=== PATIENT | female | born 1950 | race African-American/Black ===

== ENCOUNTER → 2024-01-30 | Outpatient (CLI) | payer OTHER, SELFPAY ==
[2024-01-29 12:08] LABS: Basophils % (Auto) 0 % (0-2.5); Eosinophils # (Auto) 0.1 Thou/mm3 (0.0-0.5); Eosinophils % (Auto) 3 % (0-10); Hematocrit 40.7 % (36.0-46.0); Hemoglobin 13.4 g/dL (12.0-16.0); Immature Granulocytes % (Auto) 0 % (0-0); Immature Granulocytes Auto 0.01 Thou/mm3 (0.00-0.00); Lymphocytes # (Auto) 1.9 Thou/mm3 (1.0-4.8); Lymphocytes % (Auto) 33 % (10-50); Mean Corpuscular HGB Conc 32.9 g/dl (31.0-37.0); Mean Corpuscular Hemoglobin 30.5 pg (25.0-35.0); Mean Corpuscular Volume 93 fL (80-100); Monocytes # (Auto) 0.4 Thou/mm3 (0.0-0.8); Monocytes % (Auto) 7 % (0-12); Neutrophils # (Auto) 3.2 Thou/mm3 (1.8-7.7); Neutrophils % (Auto) 57 % (37-80); Nucleated Red Blood Cell % 0 /100 WBC (0); Platelet Count 200 Thou/mm3 (140-440); White Blood Count 5.6 Thou/mm3 (3.6-11.0)
[2024-01-29 12:17] LABS: Partial Thromboplastin Time 28.6 Seconds (22.0-36.0); Prothrombin Time 11.2 Seconds (9.0-12.2)
--- NOTE | 2024-01-30 08:00 | XR_ITS ---
Examination: Thyroid sonography complete TECHNIQUE: Multiple high resolution grayscale sonographic images thyroid lobes with color flow analysis Exam date and time: January 30, 2024 0909 hours INDICATIONS: Difficulty swallowing several years, history thyroid biopsy outside biopsy performed one week ago FINDINGS: Right thyroid 7.2 x 4.2 x 4.0 cm Lower pole vascular nodule 5.6 x 4.1 x 5.3 cm Left thyroid 5.5 x 1.9 x 2.3 cm Multiple small left thyroid nodules, the largest upper pole 8 x 7 x 10 mm, midpole 8 x 5 x 7 mm IMPRESSION: Multiple bilateral thyroid nodules, the largest, vascular in the lower pole right thyroid 5.6 x 4.1 x 5.3 cm
== END | disposition home or self-care (01) ==
PROVIDERS: Radiology Diagnostic Radiology; PCP Internal Medicine; Referring Provider Internal Medicine Hematology & Oncology; Visit Provider Internal Medicine Hematology & Oncology
DX: E04.2 Nontoxic multinodular goiter (principal); Z53.8 Procedure and treatment not carried out for other reasons; Z01.812 Encounter for preprocedural laboratory examination
CPT/HCPCS: 36415; 76536; 85025; 85610; 85730

== ENCOUNTER → 2024-03-25 | Outpatient (CLI) | payer OTHER, SELFPAY ==
--- NOTE | 2024-03-25 12:40 | XR_ITS ---
Examination: Bone densitometry Date and time of exam:March 25, 2024 1338 hours INDICATIONS: Menopause age 40, diabetic Technique: Lumbar spine and hip total bone mineralization values of an calculated. Peak reference and age match control results have been displayed. Findings: Lumbar spine total bone mineralization is1.388 gm/cm2. This is 2.2 standard deviations above peak reference. This is 4.6 standard deviations above age-matched controls. Hip total bone mineralization is 1.086 gm/cm2 This is 0.4 standard deviations above peak reference. This is 1.6 standard deviations above age-matched controls Impression: There is normal mineralization based on lumbar spine measurements. There is normal mineralization based on hip measurements
== END | disposition home or self-care (01) ==
LOC: CDIM 12:42
PROVIDERS: Referring Provider Nurse Anesthetist, Certified Registered; Visit Provider Nurse Anesthetist, Certified Registered
DX: M81.0 Age-related osteoporosis without current pathological fracture (principal)
CPT/HCPCS: 77080

== ENCOUNTER 2024-06-12 09:06 | Outpatient (AMB) | payer OTHER, SELFPAY ==
[2024-06-12 09:26] VITALS: BP 146/80; PULSE 83; RESP 18; TEMP 36.8; O2SAT 91; BMI 40.9
--- NOTE | 2024-06-12 09:26 | ORTHONT_ITS ---
Vital signs 06/12/24 09:26 Height 1.63 m Height Method Stated Weight 108.21 kg Weight Measurement Method Standing Scale BMI 40.9 BP 146/80 H Blood Pressure Source Automatic Cuff Blood Pressure Location Right Upper Arm Position Sitting Respiration 18 Pulse 83 Pulse Source Monitor Temp 98.3 F Temp Source Temporal Artery Scan Pulse Oximetry (%) 91 L Oxygen Delivery Method Room Air Med/Allergies Allergies & Medications Allergies codeine Adverse Reaction (Intermediate, Verified 06/12/24 09:27) HIVES Medication Reconciliation acetaminophen 500 mg tablet (Tylenol Extra Strength) 500 mg PO Q6H PRN 06/12/24 [History Confirmed 06/12/24] allopurinol 100 mg tablet 100 mg PO QDAY 06/12/24 [History Confirmed 06/12/24] aspirin 81 mg tablet,delayed release 81 mg PO QDAY 06/12/24 [History Confirmed 06/12/24] atorvastatin 80 mg tablet 80 mg PO QDAY 06/12/24 [History Confirmed 06/12/24] azelastine 0.05 % eye drops 1 drp Both eyes BID 06/12/24 [History Confirmed 06/12/24] calcitriol 0.25 mcg capsule 0.25 mcg PO QDAY 06/12/24 [History Confirmed 06/12/24] cetirizine 10 mg capsule (Allergy Relief (cetirizine)) 10 mg PO QDAY PRN 06/12/24 [History Confirmed 06/12/24] chlorthalidone 25 mg tablet 25 mg PO QDAY 06/12/24 [History Confirmed 06/12/24] cholecalciferol (vitamin D3) 10 mcg (400 unit) tablet 10 mcg PO QDAY 06/12/24 [History Confirmed 06/12/24] diclofenac sodium 1 % topical gel 2 g topical QID 06/12/24 [History Confirmed 06/12/24] docusate sodium 100 mg capsule 100 mg PO QDAY 06/12/24 [History Confirmed 06/12/24] doxazosin 2 mg tablet 2 mg PO QDAY 06/12/24 [History Confirmed 06/12/24] exemestane 25 mg tablet 25 mg PO QDAY 06/12/24 [History Confirmed 06/12/24] glipizide 5 mg tablet 5 mg PO QDAY 06/12/24 [History Confirmed 06/12/24] guaifenesin 1,200 mg tablet, extended release 12 hr 1,200 mg PO BID 06/12/24 [History Confirmed 06/12/24] insulin aspart U-100 100 unit/mL (3 mL) subcutaneous pen (Novolog FlexPen U-100 Insulin aspart) 15 unit subcut TID 06/12/24 [History Confirmed 06/12/24] loratadine 10 mg tablet 10 mg PO QDAY 06/12/24 [History Confirmed 06/12/24] metoprolol succinate 200 mg capsule sprinkle, ext. release 24 hr 200 mg PO QDAY 06/12/24 [History Confirmed 06/12/24] mupirocin 2 % topical ointment 1 applic topical BID 06/12/24 [History Confirmed 06/12/24] nitroglycerin 0.4 mg sublingual tablet 0.4 mg sublingual Q5M PRN 06/12/24 [History Confirmed 06/12/24] ondansetron 8 mg disintegrating tablet 8 mg PO Q8H 06/12/24 [History Confirmed 06/12/24] semaglutide 3 mg tablet 3 mg PO QDAY 06/12/24 [History Confirmed 06/12/24] spironolactone 50 mg tablet 50 mg PO QAM 06/12/24 [History Confirmed 06/12/24] Exam Exam Patient is in no acute distress and is cooperative with the examination today. Breathing is nonlabored. In no respiratory distress. Bilateral extremities were evaluated and demonstrates sensation intact to light touch. Palpable pedal pulses are present. No significant edema is present. Bilateral hips were examined. The patient has no pain with log roll of the hips. Internal rotation to 30 degrees and external rotation to 30 degrees is painless. Negative FADIR. The left knee was examined. The left knee is in varus alignment. Range of motion from 0-115 degrees. Knee is stable to varus and valgus as well as AP translation with <5mm. Patient has a negative McMurrays. There is no pain with patellofemoral compression and no crepitus noted. The knee is tender to palpation medially. The right knee was also examined. The right knee is in varus alignment. Range of motion from 0-120 degrees. Knee is stable to varus and valgus as well as AP translation with <5mm. Patient has a negative McMurrays. There is no pain with patellofemoral compression and no crepitus noted. The knee is tender to palpation medially. I reviewed nonweightbearing x-rays of For medical imaging. This demonstrates medial osteophytes and joint space narrowing. Assessment and Plan Problem List (1) Arthritis of both knees: Status: Acute Plan: Bilateral knee arthritis patient is a 73-year-old female with bilateral knee pain and bilateral knee arthritis. We discussed different treatment options. She does have significant arthritis noted likely at weightbearing x-rays. I discussed with her that this is an elective procedure. She has not tried conservative treatment and we are not sure what her hemoglobin A1c is currently. We will see her back after her x-rays are done for further discussion of treatment options. Advanced Care Planning Discussion Advance care planning discussed with:: patient Office Procedures GNS Level of Care Nursing/Assessment Patient Status: Initial/New Patient Nursing Assessment/Reassesment: Medication Reconciliation, Update PMH in EMR and Vital Signs Coordination of Care: Complex Care and Chronic Disease 1-5, Education Complex Pt/Fam, Consent,records obtained, informed consent, Lab and Imaging orders, Results/Orders obtained and Staff clarify orders New Patient Charge New Patient Point Assignment: 1109 New Patient Point Charge: TELECOMMUNICATION ENGINEER Level 3 (0880-0810) MA Intake Visit Data Collection New Patient or Established: New Patient (never been to [facility]) Reason for Visit:: BILATERAL KNEE PAIN Seen by Clinical Staff ONLY (RN/MA): No Verbal consent obtained for Telemed visit?: No 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 PCP or OBGYN visit in last 3 months: Yes Hx Now: No Do You Feel Safe at Home: Yes Authorities Contacted: N/A Questionairres Past Medical History Past Medical History Have you ever been diagnosed with any of the following: Cardiology Problems Myocardial Infarction: Yes Hypertension: Yes Respiratory Problems Asthma: Yes Cough: No Wheezing: No Smoking: No Smoking Cessation Counseling: No Smoking Exposure: No Stomache/Intestinal Problems Obesity: Yes Genital/Urinary Problems Chronic Kidney Disease: Yes Reproductive Problems Breast Cancer: Yes Musculoskeletal Problems Arthritis: Yes Carpal Tunnel Syndrome: Yes Head,Eye,Nose,Throat Problems Glaucoma: Yes Endocrine Problems Diabetes Mellitus Type 2: Yes Subjective Visit Visit for: new patient and knee Immunization / Flu Flu Vaccine in the Last 12 Months: Yes Flu Vaccine Exclusion Criteria: Already Received History of Present Illness Chief complaint: Bilateral knee pain Date of injury / onset of symptoms: 5 YEARS Patient is a 73-year-old female with bilateral knee pain. This been ongoing for quite a while. She is actually lost 10 pounds recently on weight loss medications. She reports that this helped with the pain dramatically. She has had injections in the past which have raised her sugars dramatically. Her hemoglobin A1c is currently unknown.She is using a walker Personal History Occupation: RETIRED Red flag PMH: Blood thinners and BMI BMI Counceling provided: Yes Pain Pain level (0-10): 8 Pain duration: ALL DAY Pain location: anterior Pain quality: sharp, dull and aching Pain timing: increases with activity Associated signs & symptoms: stiffness Ambulatory data Ambulatory device: walker Treatments Number of previous injections: 6 Improvement with previous injections: Yes Number of Physical Therapy sessions: 6 Improvement with PT: No Improvement with NSAIDS: yes (TYLENOL) Review of Systems Review of Systems: All systems negative unless otherwise noted in HPI.
--- NOTE | 2024-06-12 09:31 | XR_ITS ---
Examination: Bilateral knees 2 views Right lateral knee left lateral knee 2 views Bilateral axial knees single view TECHNIQUE: Bilateral AP knees standing single view, bilateral PA knees standing single view flexion Standing right lateral knee left lateral knee 2 views Bilateral axial knees single view Exam date and time: June 12, 2024 0940 hours INDICATIONS: Bilateral knee pain beginning one year ago FINDINGS: Prominent osteopenia Moderate to advanced narrowing medial joint space right knee Advanced osteoarthritis right patellofemoral joint Severe narrowing medial joint space left knee, [id number] Advanced osteoarthritis left patellofemoral joint No fractures IMPRESSION: Moderate to advanced narrowing medial joint space right knee Advanced osteoarthritis right patellofemoral joint Severe narrowing medial joint space left knee, [id number] Advanced osteoarthritis left patellofemoral joint
== END 2024-06-12 09:42 | disposition home or self-care (01) ==
PROVIDERS: Supervising Provider Orthopaedic Surgery Adult Reconstructive Orthopaedic Surgery; Visit Provider Orthopaedic Surgery Adult Reconstructive Orthopaedic Surgery
DX: M17.0 Bilateral primary osteoarthritis of knee (principal); M25.562 Pain in left knee; M25.561 Pain in right knee; I10 Essential (primary) hypertension; I25.2 Old myocardial infarction; E11.9 Type 2 diabetes mellitus without complications
CPT/HCPCS: 73564; 99203; G0463

== ENCOUNTER 2024-07-04 10:30 | Outpatient (AMB) | payer OTHER, SELFPAY ==
[2024-07-04 10:46] VITALS: BP 118/74; PULSE 83; RESP 18; TEMP 36.3; O2SAT 96; BMI 40.1
--- NOTE | 2024-07-04 10:46 | PD.ORTHCLVIS ---
Vital signs 07/04/24 10:46 Height 1.63 m Height Method Stated Weight 106.651 kg Weight Measurement Method Standing Scale BMI 40.1 BP 118/74 Blood Pressure Source Automatic Cuff Blood Pressure Location Right Upper Arm Position Sitting Respiration 18 Pulse 83 Pulse Source Monitor Temp 97.3 F Temp Source Temporal Artery Scan Pulse Oximetry (%) 96 Oxygen Delivery Method Room Air Med/Allergies Allergies & Medications Allergies codeine Adverse Reaction (Intermediate, Verified 07/04/24 10:47) HIVES Medication Reconciliation acetaminophen 500 mg tablet (Tylenol Extra Strength) 500 mg PO Q6H PRN 06/12/24 [History Confirmed 07/04/24] allopurinol 100 mg tablet 100 mg PO QDAY 06/12/24 [History Confirmed 07/04/24] aspirin 81 mg tablet,delayed release 81 mg PO QDAY 06/12/24 [History Confirmed 07/04/24] atorvastatin 80 mg tablet 80 mg PO QDAY 06/12/24 [History Confirmed 07/04/24] azelastine 0.05 % eye drops 1 drp Both eyes BID 06/12/24 [History Confirmed 07/04/24] calcitriol 0.25 mcg capsule 0.25 mcg PO QDAY 06/12/24 [History Confirmed 07/04/24] cetirizine 10 mg capsule (Allergy Relief (cetirizine)) 10 mg PO QDAY PRN 06/12/24 [History Confirmed 07/04/24] chlorthalidone 25 mg tablet 25 mg PO QDAY 06/12/24 [History Confirmed 07/04/24] cholecalciferol (vitamin D3) 10 mcg (400 unit) tablet 10 mcg PO QDAY 06/12/24 [History Confirmed 07/04/24] diclofenac sodium 1 % topical gel 2 g topical QID 06/12/24 [History Confirmed 07/04/24] docusate sodium 100 mg capsule 100 mg PO QDAY 06/12/24 [History Confirmed 07/04/24] doxazosin 2 mg tablet 2 mg PO QDAY 06/12/24 [History Confirmed 07/04/24] exemestane 25 mg tablet 25 mg PO QDAY 06/12/24 [History Confirmed 07/04/24] glipizide 5 mg tablet 5 mg PO QDAY 06/12/24 [History Confirmed 07/04/24] guaifenesin 1,200 mg tablet, extended release 12 hr 1,200 mg PO BID 06/12/24 [History Confirmed 07/04/24] insulin aspart U-100 100 unit/mL (3 mL) subcutaneous pen (Novolog FlexPen U-100 Insulin aspart) 15 unit subcut TID 06/12/24 [History Confirmed 07/04/24] loratadine 10 mg tablet 10 mg PO QDAY 06/12/24 [History Confirmed 07/04/24] metoprolol succinate 200 mg capsule sprinkle, ext. release 24 hr 200 mg PO QDAY 06/12/24 [History Confirmed 07/04/24] mupirocin 2 % topical ointment 1 applic topical BID 06/12/24 [History Confirmed 07/04/24] nitroglycerin 0.4 mg sublingual tablet 0.4 mg sublingual Q5M PRN 06/12/24 [History Confirmed 07/04/24] ondansetron 8 mg disintegrating tablet 8 mg PO Q8H 06/12/24 [History Confirmed 07/04/24] semaglutide 3 mg tablet 3 mg PO QDAY 06/12/24 [History Confirmed 07/04/24] spironolactone 50 mg tablet 50 mg PO QAM 06/12/24 [History Confirmed 07/04/24] Exam Exam Patient is in no acute distress and is cooperative with the examination today. Breathing is nonlabored. In no respiratory distress. Bilateral extremities were evaluated and demonstrates sensation intact to light touch. Palpable pedal pulses are present. No significant edema is present. Bilateral hips were examined. The patient has no pain with log roll of the hips. Internal rotation to 30 degrees and external rotation to 30 degrees is painless. Negative FADIR. The left knee was examined. The left knee is in varus alignment. Range of motion from 0-115 degrees. Knee is stable to varus and valgus as well as AP translation with <5mm. Patient has a negative McMurrays. There is no pain with patellofemoral compression and no crepitus noted. The knee is tender to palpation medially. The right knee was also examined. The right knee is in varus alignment. Range of motion from 0-120 degrees. Knee is stable to varus and valgus as well as AP translation with <5mm. Patient has a negative McMurrays. There is no pain with patellofemoral compression and no crepitus noted. The knee is tender to palpation medially. I reviewed nonweightbearing x-rays of For medical imaging. This demonstrates medial osteophytes and joint space narrowing. Assessment and Plan Problem List (1) Arthritis of both knees: Status: Acute Plan: Bilateral knee arthritis patient is a 73-year-old female with bilateral knee pain and bilateral knee arthritis. We discussed different treatment options. She does have significant arthritis noted likely at weightbearing x-rays. I discussed with her that this is an elective procedure. She has not tried conservative treatment and we are not sure what her hemoglobin A1c is currently. We will continue with conservative treatment and weight loss. She is doing well Advanced Care Planning Discussion Advance care planning discussed with:: patient Office Procedures GNS Level of Care Nursing/Assessment Patient Status: Established Patient Nursing Assessment/Reassesment: Medication Reconciliation, Update PMH in EMR and Vital Signs Coordination of Care: Complex Care and Chronic Disease 1-5, Education Complex Pt/Fam, Consent,records obtained, informed consent, Results/Orders obtained and Staff clarify orders Established Patient Charge Established Patient Point Assignment: 95 Established Patient Point Charge: EP Level 3 (80-115) MA Intake Visit Data Collection New Patient or Established: Established Patient (seen at [facility] within 3 years) Reason for Visit:: F/U XRAYS Seen by Clinical Staff ONLY (RN/MA): No Verbal consent obtained for Telemed visit?: No 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 PCP or OBGYN visit in last 3 months: Yes Hx Now: No Do You Feel Safe at Home: Yes Authorities Contacted: N/A Questionairres Past Medical History Past Medical History Have you ever been diagnosed with any of the following: Cardiology Problems Myocardial Infarction: Yes Hypertension: Yes Respiratory Problems Asthma: Yes Cough: No Wheezing: No Smoking: No Smoking Cessation Counseling: No Smoking Exposure: No Stomache/Intestinal Problems Obesity: Yes Reproductive Problems Breast Cancer: Yes Musculoskeletal Problems Arthritis: Yes Carpal Tunnel Syndrome: Yes Head,Eye,Nose,Throat Problems Glaucoma: Yes Endocrine Problems Diabetes Mellitus Type 2: Yes Subjective Visit Visit for: follow up visit, knee and x-rays Immunization / Flu Flu Vaccine in the Last 12 Months: No Flu Vaccine Exclusion Criteria: No Exclusion Criteria History of Present Illness Chief complaint: F/U KNEE XRAYS Date of injury / onset of symptoms: 5 YEARS Patient is a 73-year-old female with bilateral knee pain. This been ongoing for quite a while. She is actually lost 10 pounds recently on weight loss medications. She reports that this helped with the pain dramatically. She has had injections in the past which have raised her sugars dramatically. She has lost some weight and reports it is help with the pain in her knee tremendously Personal History Occupation: RETIRED Red flag PMH: BMI BMI Counceling provided: Yes Pain Pain level (0-10): 7 Pain duration: ALL DAY Pain location: inside (medial), outside (lateral), anterior and posterior Pain quality: sharp, dull and aching Pain timing: increases with activity Associated signs & symptoms: none Ambulatory data Ambulatory device: none Treatments Number of previous injections: 6 Improvement with previous injections: No Number of Physical Therapy sessions: 6 Improvement with PT: No Improvement with NSAIDS: no Review of Systems Review of Systems: All systems negative unless otherwise noted in HPI.
== END 2024-07-04 10:47 | disposition home or self-care (01) ==
LOC: HODSRG 10:30
PROVIDERS: Supervising Provider Orthopaedic Surgery Adult Reconstructive Orthopaedic Surgery; Visit Provider Orthopaedic Surgery Adult Reconstructive Orthopaedic Surgery
DX: M17.0 Bilateral primary osteoarthritis of knee (principal); M25.562 Pain in left knee; M25.561 Pain in right knee; I10 Essential (primary) hypertension; I25.2 Old myocardial infarction; E11.9 Type 2 diabetes mellitus without complications
CPT/HCPCS: 99213; G0463

== ENCOUNTER 2024-10-14 08:59 | Outpatient (AMB) | payer OTHER, SELFPAY ==
[2024-10-14 09:29] VITALS: BP 132/83; PULSE 84; RESP 20; TEMP 35.8; O2SAT 98; BMI 39.3
--- NOTE | 2024-10-14 09:29 | PD.ORTHCLVIS ---
Vital signs 10/14/24 09:29 Height 1.63 m Height Method Stated Weight 104.411 kg Weight Measurement Method Standing Scale BMI 39.3 BP 132/83 H Blood Pressure Source Automatic Cuff Blood Pressure Location Left Upper Arm Position Sitting Respiration 20 Pulse 84 Pulse Source Monitor Temp 96.4 F L Temp Source Temporal Artery Scan Pulse Oximetry (%) 98 Oxygen Delivery Method Room Air Med/Allergies Allergies & Medications Allergies codeine Adverse Reaction (Intermediate, Verified 10/14/24 09:30) HIVES Medication Reconciliation acetaminophen 500 mg tablet (Tylenol Extra Strength) 500 mg PO Q6H PRN 06/12/24 [History Confirmed 10/14/24] allopurinol 100 mg tablet 100 mg PO QDAY 06/12/24 [History Confirmed 10/14/24] aspirin 81 mg tablet,delayed release 81 mg PO QDAY 06/12/24 [History Confirmed 10/14/24] atorvastatin 80 mg tablet 80 mg PO QDAY 06/12/24 [History Confirmed 10/14/24] azelastine 0.05 % eye drops 1 drp Both eyes BID 06/12/24 [History Confirmed 10/14/24] calcitriol 0.25 mcg capsule 0.25 mcg PO QDAY 06/12/24 [History Confirmed 10/14/24] cetirizine 10 mg capsule (Allergy Relief (cetirizine)) 10 mg PO QDAY PRN 06/12/24 [History Confirmed 10/14/24] chlorthalidone 25 mg tablet 25 mg PO QDAY 06/12/24 [History Confirmed 10/14/24] cholecalciferol (vitamin D3) 10 mcg (400 unit) tablet 10 mcg PO QDAY 06/12/24 [History Confirmed 10/14/24] diclofenac sodium 1 % topical gel 2 g topical QID 06/12/24 [History Confirmed 10/14/24] docusate sodium 100 mg capsule 100 mg PO QDAY 06/12/24 [History Confirmed 10/14/24] doxazosin 2 mg tablet 2 mg PO QDAY 06/12/24 [History Confirmed 10/14/24] exemestane 25 mg tablet 25 mg PO QDAY 06/12/24 [History Confirmed 10/14/24] glipizide 5 mg tablet 5 mg PO QDAY 06/12/24 [History Confirmed 10/14/24] guaifenesin 1,200 mg tablet, extended release 12 hr 1,200 mg PO BID 06/12/24 [History Confirmed 10/14/24] insulin aspart U-100 100 unit/mL (3 mL) subcutaneous pen (Novolog FlexPen U-100 Insulin aspart) 15 unit subcut TID 06/12/24 [History Confirmed 10/14/24] loratadine 10 mg tablet 10 mg PO QDAY 06/12/24 [History Confirmed 10/14/24] metoprolol succinate 200 mg capsule sprinkle, ext. release 24 hr 200 mg PO QDAY 06/12/24 [History Confirmed 10/14/24] mupirocin 2 % topical ointment 1 applic topical BID 06/12/24 [History Confirmed 10/14/24] nitroglycerin 0.4 mg sublingual tablet 0.4 mg sublingual Q5M PRN 06/12/24 [History Confirmed 10/14/24] ondansetron 8 mg disintegrating tablet 8 mg PO Q8H 06/12/24 [History Confirmed 10/14/24] semaglutide 3 mg tablet 3 mg PO QDAY 06/12/24 [History Confirmed 10/14/24] spironolactone 50 mg tablet 50 mg PO QAM 06/12/24 [History Confirmed 10/14/24] Exam Exam Patient is in no acute distress and is cooperative with the examination today. Breathing is nonlabored. In no respiratory distress. Bilateral extremities were evaluated and demonstrates sensation intact to light touch. Palpable pedal pulses are present. No significant edema is present. Bilateral hips were examined. The patient has no pain with log roll of the hips. Internal rotation to 30 degrees and external rotation to 30 degrees is painless. Negative FADIR. The left knee was examined. The left knee is in varus alignment. Range of motion from 0-115 degrees. Knee is stable to varus and valgus as well as AP translation with <5mm. Patient has a negative McMurrays. There is no pain with patellofemoral compression and no crepitus noted. The knee is tender to palpation medially. The right knee was also examined. The right knee is in varus alignment. Range of motion from 0-120 degrees. Knee is stable to varus and valgus as well as AP translation with <5mm. Patient has a negative McMurrays. There is no pain with patellofemoral compression and no crepitus noted. The knee is tender to palpation medially. I reviewed nonweightbearing x-rays of For medical imaging. This demonstrates medial osteophytes and joint space narrowing. Assessment and Plan Problem List (1) Arthritis of both knees: Status: Acute Plan: Bilateral knee arthritis patient is a 73-year-old female with bilateral knee pain and bilateral knee arthritis. We discussed different treatment options. She does have significant arthritis noted likely at weightbearing x-rays. I discussed with her that this is an elective procedure. She has not tried conservative treatment and we are not sure what her hemoglobin A1c is currently. We will continue with conservative treatment and weight loss. She is doing well. She is seeing her pcp tomorrow Advanced Care Planning Discussion Advance care planning discussed with:: patient Office Procedures GNS Level of Care Nursing/Assessment Patient Status: Established Patient Nursing Assessment/Reassesment: Medication Reconciliation, Update PMH in EMR and Vital Signs Coordination of Care: Complex Care and Chronic Disease 1-5, Education Complex Pt/Fam, Consent,records obtained, informed consent, Results/Orders obtained and Staff clarify orders Established Patient Charge Established Patient Point Assignment: 95 Established Patient Point Charge: EP Level 3 (80-115) MA Intake Visit Data Collection New Patient or Established: Established Patient (seen at [facility] within 3 years) Reason for Visit:: F/U XRAYS Seen by Clinical Staff ONLY (RN/MA): No Verbal consent obtained for Telemed visit?: No Portable Canteen Operator Required: No PCP or OBGYN visit in last 3 months: Yes Hx Now: No Do You Feel Safe at Home: Yes Authorities Contacted: N/A Questionairres Past Medical History Past Medical History Have you ever been diagnosed with any of the following: Cardiology Problems Myocardial Infarction: Yes Hypertension: Yes Respiratory Problems Asthma: Yes Cough: No Wheezing: No Smoking: No Smoking Cessation Counseling: No Smoking Exposure: No Stomache/Intestinal Problems Obesity: Yes Reproductive Problems Breast Cancer: Yes Musculoskeletal Problems Arthritis: Yes Carpal Tunnel Syndrome: Yes Head,Eye,Nose,Throat Problems Glaucoma: Yes Endocrine Problems Diabetes Mellitus Type 2: Yes Subjective Visit Visit for: follow up visit, knee and x-rays Immunization / Flu Flu Vaccine in the Last 12 Months: No Flu Vaccine Exclusion Criteria: No Exclusion Criteria History of Present Illness Chief complaint: F/U KNEE XRAYS Date of injury / onset of symptoms: 5 YEARS Patient is a 73-year-old female with bilateral knee pain. This been ongoing for quite a while. She is actually lost 10 pounds recently on weight loss medications. She reports that this helped with the pain dramatically. She has had injections in the past which have raised her sugars dramatically. She has lost some weight and reports it is help with the pain in her knee tremendously Personal History Occupation: RETIRED Red flag PMH: BMI BMI Counceling provided: Yes Pain Pain level (0-10): 7 Pain duration: ALL DAY Pain location: inside (medial), outside (lateral), anterior and posterior Pain quality: sharp, dull and aching Pain timing: increases with activity Associated signs & symptoms: none Ambulatory data Ambulatory device: none Treatments Number of previous injections: 6 Improvement with previous injections: No Number of Physical Therapy sessions: 6 Improvement with PT: No Improvement with NSAIDS: no Review of Systems Review of Systems: All systems negative unless otherwise noted in HPI.
== END 2024-10-14 09:52 | disposition home or self-care (01) ==
LOC: HODSRG 08:59
PROVIDERS: Supervising Provider Orthopaedic Surgery Adult Reconstructive Orthopaedic Surgery; Visit Provider Orthopaedic Surgery Adult Reconstructive Orthopaedic Surgery
DX: M17.0 Bilateral primary osteoarthritis of knee (principal); M25.562 Pain in left knee; M25.561 Pain in right knee; I10 Essential (primary) hypertension; I25.2 Old myocardial infarction; E11.9 Type 2 diabetes mellitus without complications; E66.9 Obesity, unspecified; Z68.39 Body mass index [BMI] 39.0-39.9, adult; Z71.3 Dietary counseling and surveillance
CPT/HCPCS: 99213; G0463

== ENCOUNTER 2025-01-22 09:33 | Outpatient (AMB) | payer OTHER, SELFPAY ==
--- NOTE | 2025-01-22 09:41 | PD.ORTHCLVIS ---
Vital signs 01/22/25 09:49 Height 1.63 m Height Method Measured Weight 97.976 kg Weight Measurement Method Standing Scale BMI 36.8 BP 124/76 Blood Pressure Source Automatic Cuff Blood Pressure Location Left Upper Arm Position Sitting Respiration 18 Pulse 73 Pulse Source Monitor Temp 97.8 F Temp Source Temporal Artery Scan Pulse Oximetry (%) 93 L Oxygen Delivery Method Room Air Med/Allergies Allergies & Medications Allergies codeine Adverse Reaction (Intermediate, Verified 01/22/25 09:50) HIVES Medication Reconciliation acetaminophen 500 mg tablet (Tylenol Extra Strength) 500 mg PO Q6H PRN 06/12/24 [History Confirmed 01/22/25] allopurinol 100 mg tablet 100 mg PO QDAY 06/12/24 [History Confirmed 01/22/25] aspirin 81 mg tablet,delayed release 81 mg PO QDAY 06/12/24 [History Confirmed 01/22/25] atorvastatin 80 mg tablet 80 mg PO QDAY 06/12/24 [History Confirmed 01/22/25] azelastine 0.05 % eye drops 1 drp Both eyes BID 06/12/24 [History Confirmed 01/22/25] calcitriol 0.25 mcg capsule 0.25 mcg PO QDAY 06/12/24 [History Confirmed 01/22/25] cetirizine 10 mg capsule (Allergy Relief (cetirizine)) 10 mg PO QDAY PRN 06/12/24 [History Confirmed 01/22/25] chlorthalidone 25 mg tablet 25 mg PO QDAY 06/12/24 [History Confirmed 01/22/25] cholecalciferol (vitamin D3) 10 mcg (400 unit) tablet 10 mcg PO QDAY 06/12/24 [History Confirmed 01/22/25] diclofenac sodium 1 % topical gel 2 g topical QID 06/12/24 [History Confirmed 01/22/25] docusate sodium 100 mg capsule 100 mg PO QDAY 06/12/24 [History Confirmed 01/22/25] doxazosin 2 mg tablet 2 mg PO QDAY 06/12/24 [History Confirmed 01/22/25] exemestane 25 mg tablet 25 mg PO QDAY 06/12/24 [History Confirmed 01/22/25] glipizide 5 mg tablet 5 mg PO QDAY 06/12/24 [History Confirmed 01/22/25] guaifenesin 1,200 mg tablet, extended release 12 hr 1,200 mg PO BID 06/12/24 [History Confirmed 01/22/25] insulin aspart U-100 100 unit/mL (3 mL) subcutaneous pen (Novolog FlexPen U-100 Insulin aspart) 15 unit subcut TID 06/12/24 [History Confirmed 01/22/25] loratadine 10 mg tablet 10 mg PO QDAY 06/12/24 [History Confirmed 01/22/25] metoprolol succinate 200 mg capsule sprinkle, ext. release 24 hr 200 mg PO QDAY 06/12/24 [History Confirmed 01/22/25] mupirocin 2 % topical ointment 1 applic topical BID 06/12/24 [History Confirmed 01/22/25] nitroglycerin 0.4 mg sublingual tablet 0.4 mg sublingual Q5M PRN 06/12/24 [History Confirmed 01/22/25] ondansetron 8 mg disintegrating tablet 8 mg PO Q8H 06/12/24 [History Confirmed 01/22/25] semaglutide 3 mg tablet 3 mg PO QDAY 06/12/24 [History Confirmed 01/22/25] spironolactone 50 mg tablet 50 mg PO QAM 06/12/24 [History Confirmed 01/22/25] Exam Exam Patient is in no acute distress and is cooperative with the examination today. Breathing is nonlabored. In no respiratory distress. Bilateral extremities were evaluated and demonstrates sensation intact to light touch. Palpable pedal pulses are present. No significant edema is present. Bilateral hips were examined. The patient has no pain with log roll of the hips. Internal rotation to 30 degrees and external rotation to 30 degrees is painless. Negative FADIR. The left knee was examined. The left knee is in varus alignment. Range of motion from 0-115 degrees. Knee is stable to varus and valgus as well as AP translation with <5mm. Patient has a negative McMurrays. There is no pain with patellofemoral compression and no crepitus noted. The knee is tender to palpation medially. The right knee was also examined. The right knee is in varus alignment. Range of motion from 0-120 degrees. Knee is stable to varus and valgus as well as AP translation with <5mm. Patient has a negative McMurrays. There is no pain with patellofemoral compression and no crepitus noted. The knee is tender to palpation medially. I reviewed nonweightbearing x-rays of For medical imaging. This demonstrates medial osteophytes and joint space narrowing. Assessment and Plan Problem List (1) Arthritis of both knees: Status: Acute Plan: Bilateral knee arthritis patient is a 73-year-old female with bilateral knee pain and bilateral knee arthritis. We discussed different treatment options. She has been doing well with conservative treatment at this time including weight loss. Will see her in 4 months for routine follow-up Advanced Care Planning Discussion Advance care planning discussed with:: patient Office Procedures GNS Level of Care Nursing/Assessment Patient Status: Established Patient Nursing Assessment/Reassesment: Medication Reconciliation, Update PMH in EMR and Vital Signs Coordination of Care: Complex Care and Chronic Disease 1-5, Education Complex Pt/Fam, Consent,records obtained, informed consent, Results/Orders obtained and Staff clarify orders Established Patient Charge Established Patient Point Assignment: 95 Established Patient Point Charge: EP Level 3 (80-115) MA Intake Visit Data Collection New Patient or Established: Established Patient (seen at [facility] within 3 years) Reason for Visit:: 3 MONTH F/U WEIGHT LOSS Seen by Clinical Staff ONLY (RN/MA): No Verbal consent obtained for Telemed visit?: No Movement Education Specialist Required: No PCP or OBGYN visit in last 3 months: Yes Hx Now: No Do You Feel Safe at Home: Yes Authorities Contacted: N/A Questionairres Past Medical History Past Medical History Have you ever been diagnosed with any of the following: Cardiology Problems Myocardial Infarction: Yes Hypertension: Yes Respiratory Problems Asthma: Yes Cough: No Wheezing: No Smoking: No Smoking Cessation Counseling: No Smoking Exposure: No Stomache/Intestinal Problems Obesity: Yes Reproductive Problems Breast Cancer: Yes Musculoskeletal Problems Arthritis: Yes Carpal Tunnel Syndrome: Yes Head,Eye,Nose,Throat Problems Glaucoma: Yes Endocrine Problems Diabetes Mellitus Type 2: Yes Subjective Visit Visit for: follow up visit and knee Immunization / Flu Flu Vaccine in the Last 12 Months: No Flu Vaccine Exclusion Criteria: No Exclusion Criteria History of Present Illness Chief complaint: 3 MONTH F/U WEIGHT LOSS Date of injury / onset of symptoms: 5 YEARS Patient is a 73-year-old female with bilateral knee pain. This been ongoing for quite a while. She has lost 30 pounds recently on weight loss medications. She reports that this helped with the pain dramatically. She has had injections in the past which have raised her sugars dramatically. Personal History Occupation: RETIRED Red flag PMH: BMI BMI Counceling provided: Yes Pain Pain level (0-10): 5 Pain duration: ALL DAY Pain location: inside (medial), outside (lateral), anterior and posterior Pain quality: sharp, dull and aching Pain timing: increases with activity Associated signs & symptoms: none Ambulatory data Ambulatory device: none Treatments Number of previous injections: 6 Improvement with previous injections: No Number of Physical Therapy sessions: 6 Improvement with PT: No Improvement with NSAIDS: no Review of Systems Review of Systems: All systems negative unless otherwise noted in HPI.
[2025-01-22 09:49] VITALS: BP 124/76; PULSE 73; RESP 18; TEMP 36.6; O2SAT 93; BMI 36.8
== END 2025-01-22 10:00 | disposition home or self-care (01) ==
LOC: HODSRG 09:33
PROVIDERS: PCP Family Medicine; Referring Provider Family Medicine; Supervising Provider Orthopaedic Surgery Adult Reconstructive Orthopaedic Surgery; Visit Provider Orthopaedic Surgery Adult Reconstructive Orthopaedic Surgery
DX: M17.0 Bilateral primary osteoarthritis of knee (principal); M25.562 Pain in left knee; M25.561 Pain in right knee; I10 Essential (primary) hypertension; E11.9 Type 2 diabetes mellitus without complications; Z79.4 Long term (current) use of insulin; E66.9 Obesity, unspecified; Z68.36 Body mass index [BMI] 36.0-36.9, adult
CPT/HCPCS: 99213; G0463